=== PATIENT | female | born 1960 ===

== ENCOUNTER 2020-02-17 22:30 | Emergency (ER) | payer BC ==
[2020-02-17 22:39] VITALS: BP 169/87; PULSE 65
--- NOTE | 2020-02-17 23:06 | EDM.PDOC ---
ED HPI GENERAL MEDICAL PROBLEM - General Chief Complaint: Chest Pain Stated Complaint: CHEST PAIN, SOB Time Seen by Provider: 02/17/20 22:50 Source of Information: Reports: Patient History Limitations: Reports: No Limitations - History of Present Illness INITIAL COMMENTS - FREE TEXT/NARRATIVE: This 59 yo female patient reports to the ED with a 1 week history of shortness of breath and a "couple day" history of chest pain. The patient reports her chest pain is associated with some pain radiating down her left arm. The patient reports her symptoms resolve with deep breathing (to the point of almost passing out). The patient reports she was seen in the Clinic with similar symptoms. During the clinic visit, the patient had a chest x-ray ( reported as normal) and a Coronovirus test (also negative). The patient reports she has had an intermittent cough producing clear phlegm. Duration: Day(s):, Intermittent Location: Reports: Chest Quality: Reports: Ache Severity: Moderate Improves with: Reports: Other (deep breathing or coughing) Worsens with: Reports: None Context: Reports: Other Associated Symptoms: Reports: Chest Pain, Shortness of Breath Chest Pain Score (Numeric/FACES): 4 - Related Data Allergies Allergy/AdvReac Type Severity Reaction Status Date / Time No Known Allergies Allergy Verified 02/17/20 22:39 Home Meds: Home Meds Acetaminophen 650 mg PO ASDIRECTED PRN 11/24/16 [History] Citalopram [Celexa] 40 mg PO DAILY 11/24/16 [History] Levothyroxine Sodium 0.5 tab PO ACBREAKFAST 11/24/16 [History] Levothyroxine Sodium 125 mcg PO ACBREAKFAST 11/24/16 [History] Omeprazole 20 mg PO BEDTIME 11/24/16 [History] Tacrolimus 1 applic TOP BID 11/24/16 [History] atenoloL [Tenormin] 100 mg PO DAILY 11/24/16 [History] hydrOXYzine HCl [Hydroxyzine HCl] 1 tab PO ASDIRECTED PRN 11/28/16 [History] Past Medical History HEENT History: Reports: Other (See Below) Other HEENT History: S/P TONSIL CA Cardiovascular History: Reports: Hypertension Respiratory History: Reports: None Gastrointestinal History: Reports: None Genitourinary History: Reports: Other (See Below) Other Genitourinary History: URINARY FREQUENCY. [employer] History: Reports: , Spontaneous Musculoskeletal History: Reports: Arthritis Neurological History: Reports: Migraines Psychiatric History: Reports: Anxiety, Depression Endocrine/Metabolic History: Reports: Hypothyroidism, Obesity/BMI 30+ Hematologic History: Reports: None Immunologic History: Reports: None Oncologic (Cancer) History: Reports: Esophageal, Other (See Below) Other Oncologic History: tonsil Dermatologic History: Reports: Other (See Below) Other Dermatologic History: rosacia - Infectious Disease History Infectious Disease History: Reports: Chicken Pox - Past Surgical History Head Surgeries/Procedures: Reports: None HEENT Surgical History: Reports: Tonsillectomy, Other (See Below) Social & Family History - Family History HEENT: Reports: Macular Degeneration Cardiac: Reports: Bypass, Hypertension Respiratory: Reports: None GI: Reports: Diverticulosis : Reports: Renal Calculus OBGYN: Reports: None Musculoskeletal: Reports: Arthritis Neurological: Reports: CVA Psychiatric: Reports: Anxiety Endocrine/Metabolic: Reports: Other (See Below) Other Endocrine/Metabolic Family History: SOME KIND OF THYROID DISESASE Hematologic: Reports: None Immunologic: Reports: None Dermatologic: Reports: Other (See Below) Other Dermatologic Family History: ROSACIA Oncologic: Reports: Other (See Below) Other Oncologic Family History: TONSIL - Tobacco Use Smoking Status *Q: Never Smoker Second Hand Smoke Exposure: No - Caffeine Use Caffeine Use: Reports: None - Recreational Drug Use Recreational Drug Use: No ED ROS GENERAL - Review of Systems Review Of Systems: Comprehensive ROS is negative, except as noted in HPI. ED EXAM, GENERAL - Physical Exam Exam: See Below Exam Limited By: No Limitations General Appearance: Alert, WD/WN, Mild Distress Eye Exam: Bilateral Eye: EOMI, Normal Inspection, PERRL Ears: Normal External Exam, Normal Canal, Hearing Grossly Normal, Normal TMs Nose: Normal Inspection, Normal Mucosa, No Blood Throat/Mouth: Normal Inspection, Normal Lips, Normal Teeth, Normal Gums, Normal Oropharynx, Normal Voice, No Airway Compromise Head: Atraumatic, Normocephalic Neck: Normal Inspection, Supple, Non-Tender, Full Range of Motion Respiratory/Chest: No Respiratory Distress, Lungs Clear, Normal Breath Sounds, No Accessory Muscle Use, Chest Non-Tender Cardiovascular: Normal Peripheral Pulses, Regular Rate, Rhythm, No Edema, No Gallop, No JVD, No Murmur, No Rub GI/Abdominal: Normal Bowel Sounds, Soft, Non-Tender, No Organomegaly, No Distention, No Abnormal Bruit, No Mass (Female) Exam: Deferred Rectal (Female) Exam: Deferred Back Exam: Normal Inspection, Full Range of Motion, NT Extremities: Normal Inspection, Normal Range of Motion, Non-Tender, Normal Capillary Refill, No Pedal Edema Neurological: Alert, Oriented, CN II-XII Intact, Normal Cognition, Normal Gait, Normal Reflexes, No Motor/Sensory Deficits Psychiatric: Normal Affect, Normal Mood Skin Exam: Warm, Dry, Intact, Normal Color, No Rash Lymphatic: No Adenopathy Course - Vital Signs Last Recorded V/S: Last Vital Signs Temp 36.6 C 02/17/20 22:33 Pulse 65 02/17/20 22:33 Resp 18 02/17/20 22:33 BP 169/87 H 02/17/20 22:33 Pulse Ox 100 02/17/20 22:33 - Orders/Labs/Meds Orders: Active Orders 24 hr Category Date Time Status EKG Documentation Completion [RC] STAT Care 02/17/20 22:37 Active Chest 1V Frontal [CR] Urgent Exams 02/17/20 22:37 Ordered Labs: Laboratory Tests 02/17/20 02/17/20 02/17/20 Range/Units 22:47 22:47 22:47 WBC 7.2 (5.0-10.0) 10^3/uL RBC 4.40 (4.2-5.4) 10^6/uL Hgb 14.3 (12.0-16.0) g/dL Hct 41.6 (37.0-47.0) % MCV 94.5 (80-100) fL MCH 32.5 (27.0-34.0) pg MCHC 34.4 (33.0-35.0) g/dL Plt Count 169 (150-450) 10^3/uL Neut % (Auto) 48.3 (42.2-75.2) % Lymph % (Auto) 40.9 (20.5-50.1) % Garden % (Auto) 7.6 (2-8) % Eos % (Auto) 2.9 (1.0-3.0) % Baso % (Auto) 0.3 (0.0-1.0) % D-Dimer, Quantitative 146 (0-400) ng/mL Sodium 138 (136-145) mmol/L Potassium 3.7 (3.5-5.1) mmol/L Chloride 101 (98-107) mmol/L Carbon Dioxide 31 (21-32) mmol/L Anion Gap 9.7 (7-13) mEq/L BUN 23 H (7-18) mg/dL Creatinine 0.76 (0.55-1.02) mg/dL Est Cr Clr Drug Dosing 75.53 mL/min Estimated GFR (MDRD) > 60 BUN/Creatinine Ratio 30.3 (No establ ref range) Glucose 90 (74-99) mg/dL Calcium 9.3 (8.5-10.1) mg/dL Total Bilirubin 0.3 (0.2-1.0) mg/dL AST 15 (15-37) U/L ALT 25 (14-59) U/L Alkaline Phosphatase 58 (46-116) U/L Troponin I < 0.017 (0.000-0.056) ng/mL Total Protein 7.5 (6.4-8.2) g/dL Albumin 4.0 (3.4-5.0) g/dL Globulin 3.5 Albumin/Globulin Ratio 1.1 Departure - Departure Time of Disposition: 23:57 Disposition: Home, Self-Care 01 Condition: Fair Clinical Impression: Nonspecific chest pain Instructions: Nonspecific Chest Pain, Adult Forms: ED Department Discharge Care Plan Goals: The patient was advised of the examination, lab, x-ray and EKG results during the visit. The patient was encouraged to follow-up with her primary care facility for continued evaluation and further management. If the patient has any additional symptoms or concerns, the patient should either return to the emergency department or visit her primary care facility. Sepsis Event Note - Evaluation Sepsis Screening Result: No Definite Risk - Focused Exam Vital Signs: Vital Signs Temp Pulse Resp BP Pulse Ox 02/17/20 22:33 36.6 C 65 18 169/87 H 100 Date Exam was Performed: 02/17/20 Time Exam was Performed: 23:57 - My Orders Last 24 Hours: My Active Orders 02/17/20 22:37 EKG Documentation Completion [RC] STAT Chest 1V Frontal [CR] Urgent - Assessment/Plan Last 24 Hours: My Active Orders 02/17/20 22:37 EKG Documentation Completion [RC] STAT Chest 1V Frontal [CR] Urgent
[2020-02-17 23:18] LABS: ANION GAP 9.7 mEq/L (7-13); CHLORIDE,CL 101 mmol/L (98-107); SODIUM,NA 138 mmol/L (136-145)
== END 2020-02-18 00:05 | disposition home or self-care (01) ==
LOC: DL.ED 22:30
DX: R07.9 Chest pain, unspecified (principal); I10 Essential (primary) hypertension; F41.9 Anxiety disorder, unspecified; F32.9 Major depressive disorder, single episode, unspecified; E03.9 Hypothyroidism, unspecified; E66.9 Obesity, unspecified; Z68.28 Body mass index [BMI] 28.0-28.9, adult; Z79.899 Other long term (current) drug therapy
CPT/HCPCS: 36415; 71045; 80053; 84484; 85025; 85379; 93005; 99285-25